=== PATIENT | male | born 1965 | race Caucasian/White ===

== ENCOUNTER 2019-02-14 16:13 | Emergency (ER) | payer BC ==
[~2019-02-14] VITALS: Ht 180.3 cm; Wt 97.5 kg
[2019-02-14 16:16] VITALS: BP_SYST 155
[2019-02-14 16:55] VITALS: BP_SYST 155
== END 2019-02-14 16:55 | disposition home or self-care (01) ==
LOC: SED 16:13
DX: H66.92 Otitis media, unspecified, left ear (principal); H60.332 Swimmer's ear, left ear; I10 Essential (primary) hypertension
CPT/HCPCS: 99283